=== PATIENT | male | born 1955 | race Caucasian/White ===

== ENCOUNTER 2018-03-25 00:31 | Inpatient (IN) | payer OTHER ==
[2018-03-25] VITALS (81 sets, daily range): BP systolic 110–166; BP diastolic 59–113
[~2018-03-25] VITALS: Ht 182.9 cm
[2018-03-25] MEDS ORDERED: MORPHINE SULFATE 4 MG/ML SYR/VIAL ONE (00:44)
[2018-03-25] MEDS ORDERED: MORPHINE SULFATE 10 MG/ML INJ 1ML SDV IV ONE (00:45)
[2018-03-25] MEDS ORDERED: HEPARIN SODIUM (PORCINE) 5000 UNITS/ML 1ML VIAL ONE (00:46)
[2018-03-25] MEDS ORDERED: ONDANSETRON HCL 4 MG/2 ML VIAL ONE (00:46)
[2018-03-25] MEDS ORDERED: ASPirin 81 mg TAB ONE (00:50)
[2018-03-25 00:58] LABS: Basophils # (auto) 0.1 uL; Basophils % (auto) 0.9 % (0.0-2.0); Eosinophils # (auto) 0.2 uL; Eosinophils % (auto) 2.7 % (0.0-7.0); Hematocrit 41.9 % (41.0-53.0); Hemoglobin 14.4 g/dL (13.5-17.5); Lymphocytes # (auto) 2.5 uL; Lymphocytes % (auto) 36.5 % (10.0-50.0); Mean Corpuscular Hemoglobin 32.5 pg (28.0-32.0); Mean Corpuscular Hgb Conc. 34.3 g/dL (32.0-36.0); Mean Corpuscular Volume 94.8 fL (80.0-100.0); Monocytes % (auto) 13.9 % (0.0-12.0); Neutrophils # (auto) 3.2 uL; Nucleated Red Blood Cells % 0.1 %; Platelet Count (auto) 186 10^3/uL (140-450); Red Blood Cells 4.42 10^6/uL (4.5-5.90); Red Cell Distribution Width 12.6 % (11.8-14.3); White Blood Cell 6.9 10^3/uL (4.4-10.8)
[2018-03-25] MEDS ORDERED: ASPirin 81 mg TAB PO ONE (01:00)
[2018-03-25] MEDS ORDERED: HEPARIN SODIUM (PORCINE) 5000 UNITS/ML 1ML VIAL IV ONE (01:00)
[2018-03-25] MEDS ORDERED: ONDANSETRON HCL 4 MG/2 ML VIAL IV ONE (01:00)
[2018-03-25] MEDS ORDERED: LIDOCAINE 2%HCL (LOCAL ANESTH.) INJ 20ML MDV ONE (01:05)
[2018-03-25] MEDS ORDERED: IODIXANOL 320MG/ML 100ML BTL IV ONE ×3 (01:05→01:47)
[2018-03-25 01:16] LABS: Albumin 3.2 g/dL (3.4-5.0); Anion Gap 12 (5-15); Blood Urea Nitrogen 22 mg/dL (7-18); Calcium 7.8 mg/dL (8.5-10.1); Carbon Dioxide 20 mmol/L (21-32); Chloride 109 mmol/L (98-107); GFR African American > 60 mL/min; GFR Non-African American > 60 mL/min; Glucose 127 mg/dL (74-106); Magnesium 2.1 mg/dL (1.6-2.6); Potassium 3.2 mmol/L (3.5-5.1); Sodium 141 mmol/L (136-145)
[2018-03-25] MEDS ORDERED: fentaNYL CITRATE 100 MCG/2 ML VL ONE ×2 (01:16→01:52)
[2018-03-25] MEDS ORDERED: ANGIOMAX 250 MG VIAL IV ONE ×2 (01:16→02:16)
[2018-03-25] MEDS ORDERED: ATROPINE SULF 1 MG/10ml SYR ONE (01:16)
[2018-03-25] MEDS ORDERED: MIDAZOLAM HCL 1MG/1ML-2 ML VIAL ONE (01:16)
[2018-03-25] MEDS ORDERED: EPINEPHrine HCL 1 MG/10 ML SYRG ONE (01:16)
[2018-03-25] MEDS ORDERED: SODIUM CHL 0.9% 50 ML ONE ×2 (01:16→02:16)
[2018-03-25 01:25] LABS: Alanine Aminotransferase 26 U/L (16-61); Alkaline Phosphatase 70 U/L (45-117); Aspartate Aminotransferase 17 U/L (15-37); Bilirubin, Total 0.3 mg/dL (0.2-1.0); Total Protein 6.3 g/dL (6.4-8.2)
[2018-03-25] MEDS ORDERED: LIDOCAINE HCL 100 MG/5ML (2%) SYRG INJ IV ONE (01:50)
[2018-03-25] MEDS ORDERED: FUROSEMIDE 20 MG/2 ML VIAL ONE (02:01)
[2018-03-25] MEDS ORDERED: TICAGRELOR 90 MG TAB ONE (02:22)
[2018-03-25] MEDS ORDERED: MORPHINE SULFATE 10 MG/ML INJ 1ML SDV IV PRN (03:00)
[2018-03-25] MEDS ORDERED: NITROGLYCERIN 0.4 MG SL TAB SL PRN (03:00)
--- NOTE | 2018-03-25 03:05 | NUR ---
ICU pt S/P Cardiac Cath Report received from Tejas LANDEROS. CONCETTA BUCHANAN brought to bed 266 following Left Cardiac catheterization, on cardiac rn and portable oxygen. Patient transfered to ICU bed, connected to ICU monitoring and oxygen. Catheter remains in right groin groin. Patient educated on need to keep leg straight and flat. Patient verbalized understanding. Site assessed for any bleeding, redness or swelling. Pedal pulses on affected leg assessed for positive tissue perfusion. Patient instructed on need to notify staff immediately if any pain, burning or wetness to site, and any lower back pain. Patient educated on new cardiac medications. All questions and concerns addressed, patient verbalized understanding of all education and instruction. See notes for any further. NOTE: Safeguard dressing in the right groin, intact with no signs of bleeding. MRSA swab in the nose done, specimen sent to lab.
[2018-03-25] MEDS ORDERED: POTASSIUM CHL 20 Meq TABLET PO ONE (03:30)
--- NOTE | 2018-03-25 04:25 | NUR ---
Received a call from Jesus Aguilar from [employer] asking an update on pt's status. Primary RN informed him that he needs to give me the password first or he can call the family to access the password and other information.
[2018-03-25] MEDS: ATORVASTATIN 20 MG TAB PO SCH ×2 (04:35→21:33)
--- NOTE | 2018-03-25 05:00 | NUR ---
2nd call received from Jesus Aguilar from [facility], case # [id number] verifying pt's status whether service delivery analyst from the family is fit to visit family member home. Left a callback # . Addendum: 03/26/18 at 0434 by Lina Hartman RN Updated on pt's status after verifying the password.
[2018-03-25] MEDS ORDERED: METO25TA5 PO (05:36)
[2018-03-25] MEDS ORDERED: IBUP600T27 PO (05:36)
[2018-03-25] MEDS ORDERED: ATOR10TA PO (05:36)
[2018-03-25] MEDS ORDERED: LOSA25TA40 PO (05:36)
--- NOTE | 2018-03-25 06:00 | NUR ---
C/o "funny chest pain something with a gas" scale, 03/13 but refused pain medication, he said " I already had a lot in the OR and I don't want it", Had runs of vtach in the strip and BBB, will do the EKG and will attach strip to chart. Addendum: 03/25/18 at 0747 by Lina Hartman RN Pt had no accompanying S/S. VS noted to be stable.
--- NOTE | 2018-03-25 06:30 | NUR ---
Deflated a total of about 40ml of air thru the safeguard in the right groin but incision is opening up slowly and tiny amount of blood was coming out, inflated back about 20ml of air and left the safeguard temporarily.
--- NOTE | 2018-03-25 07:20 | NUR ---
Closing shift note Resting on bed with no signs of distress. Report given to Virginia LANDEROS.
--- NOTE | 2018-03-25 07:30 | NUR ---
OPENING SHIFT NOTE ASSUMED CARE OF PATIENT AT THIS TIME. REPORT RECEIVED FROM INCISING MACHINE OPERATOR RN. POC REVIEWED. HEAD TO TOE ASSESSMENT COMPLETED AND DOCUMENTED (SEE INTERVENTION SPREADSHEET FOR DETAILS). AT THIS TIME, PATIENT IS ALERT AND ORIENTED TO PERSON, PLACE, TIME AND SITUATION. NO DISTRESS NOTED, RESPIRATIONS EVEN AND UNLABORED, ON ROOM AIR. IV SITE BENIGN, NO REDNESS, SWELLING OR PAIN NOTED OR REPORTED BY PATIENT. RIGHT GROIN AREA CLEAN, DRY AND INTACT 5 MLS OF AIR REMOVE FROM SAFEGUARD PER PROTOCOL - AREA SOFT TO TOUCH, PATIENT DENIES DISCOMFORT, PULSES PRESENT. DISCUSSED IMPORTANCE OF TURNING TO MAINTAIN SKIN INTEGRITY TO PATIENT AND SPOUSE - BOTH VERBALIZED UNDERSTANDING. CALL LIGHT, WATER AND ALL PERSONAL BELONGINGS WITHIN REACH. BVM AND SUCTION AT BEDSIDE. WILL MONITOR PATIENT CONTINUOUSLY.
[2018-03-25] MEDS ORDERED: CARVEDILOL 3.125 MG TAB PO SCH (08:00)
--- NOTE | 2018-03-25 08:08 | NUR ---
FIELD ADMINISTRATOR AT BEDSIDE
--- NOTE | 2018-03-25 08:32 | NUR ---
DR MEEHAN AT BEDSIDE REVIEWED ECHO AT BEDSIDE WITH FRIT COATER - ECHO NOT YET COMPLETED. DR MEEHAN UPDATED ON PATIENT'S STATUS, MORNING LABS AND PATIENT COMPLAINT OF CHEST PAIN AND EKG DURING REHABILITATION SUPERVISOR. ORDERS FOR BMP AND CBC RECEIVED, NO ORDERS REGARDING EKG RECEIVED. DR MEEHAN ALSO AWARE OF PENDING PARTIAL DEFLATION RIGHT GROIN SAFEGUARD, POSITIVE PULSES PRESENT. PATIENT'S SPOUSE AT BESIDE. PATIENT OK TO EAT BREAKFAST. Addendum: 03/25/18 at 0837 by Virginia Avelar RN DR MEEHAN ORDERED PATIENT TO REMAIN ICU STATUS - MONTSERRAT BUSTILLOS NURSE AWARE. Addendum: 03/25/18 at 1010 by Virginia Avelar RN 5 MLS OF AIR REMOVED FROM SAFEGUARD, NO BLEEDING NOTED - PATIENT DENIES PAIN OR DISCOMFORT.
--- NOTE | 2018-03-25 09:25 | NUR ---
CALL RECEIVED FROM [facility]N DETASSELER FROM [employer] PROVIDED WITH INFORMATION REQUESTED BY [employer]ORGAN. MORGAN STATED VISIT AUTHORIZED, WILL FOLLOW-UP AFTER 24 HOURS - .
--- NOTE | 2018-03-25 09:50 | NUR ---
DR MEEHAN AT BEDSIDE DISCUSSED OVERALL PLAN WITH PATIENT AND SPOUSE AT BEDSIDE. PATIENT SCHEDULED FOR ANOTHER HEART CATH TOMORROW PENDING [place] AUTHORIZATION. BOTH PATIENT AND SPOUSE VERBALIZED UNDERSTANDING AND AGREED WITH DR MEEHAN'S PLAN. REMOVED ANOTHER 5 MLS OF AIR FROM SAFEGUARD, NO BLEEDING NOTED - AREA SOFT TO TOUCH, PATIENT DENIES PAIN OR DISCOMFORT IN GROIN AREA. WILL CONTINUE TO MONITOR.
[2018-03-25 10:10] LABS: Basophils # (auto) 0 uL; Basophils % (auto) 0.5 % (0.0-2.0); Eosinophils # (auto) 0.1 uL; Eosinophils % (auto) 0.7 % (0.0-7.0); Hematocrit 43.7 % (41.0-53.0); Hemoglobin 15.3 g/dL (13.5-17.5); Lymphocytes # (auto) 1.2 uL; Lymphocytes % (auto) 12.9 % (10.0-50.0); Mean Corpuscular Hemoglobin 32.5 pg (28.0-32.0); Mean Corpuscular Hgb Conc. 34.9 g/dL (32.0-36.0); Mean Corpuscular Volume 93.2 fL (80.0-100.0); Monocytes # (auto) 1.1 uL; Neutrophils # (auto) 7.2 uL; Neutrophils % (auto) 74.9 % (37.0-80.0); Platelet Count (auto) 204 10^3/uL (140-450); Red Blood Cells 4.69 10^6/uL (4.5-5.90); Red Cell Distribution Width 12.9 % (11.8-14.3); White Blood Cell 9.6 10^3/uL (4.4-10.8)
[2018-03-25 10:48] LABS: Anion Gap 6 (5-15); BUN/Creatinine Ratio 19.3; Blood Urea Nitrogen 16 mg/dL (7-18); Calcium 8.7 mg/dL (8.5-10.1); Carbon Dioxide 24 mmol/L (21-32); Chloride 107 mmol/L (98-107); GFR African American > 60 mL/min; GFR Non-African American > 60 mL/min; Glucose 125 mg/dL (74-106); Potassium 4.3 mmol/L (3.5-5.1); Sodium 137 mmol/L (136-145)
[2018-03-25] MEDS: TICAGRELOR 90 MG TAB PO SCH ×2 (10:52→21:33)
[2018-03-25] MEDS: LISINOPRIL 5 MG TAB PO SCH (10:53)
[2018-03-25] MEDS: ASPirin 81 mg TAB PO SCH (10:54)
--- NOTE | 2018-03-25 12:30 | NUR ---
HOSPITALIST AT BEDSIDE DR PERES UPDATED ON PATIENT'S STATUS AND SPOKE WITH DR MEEHAN. ORDERS RECEIVED AND WILL BE CARRIED OUT. Addendum: 03/25/18 at 1455 by Virginia Avelar RN COMPLETE DEFLATION OF SAFEGUARD BALLOON - NO BLEEDING NOTED. WILL CONTINUE TO MONITOR.
--- NOTE | 2018-03-25 13:10 | NUR ---
PHONE CALL RECEIVED FROM DR SHEFALI MEEHAN ORDERED CTA OF CHEST STAT AND ONE LITER OF NORMAL SALINE. DR MEEHAN AWARE THAT PATIENT COMPLETED ONE LITER OF FLUIDS THAT WAS ORIGINALLY STARTED IN EQUITY DIRECTOR THIS MORNING. PATIENT HAS SINCE BEEN SALINE LOCKED SINCE COMPLETION. DR MEEHAN VERBALIZED DISAPPROVAL OF COMPLETION OF ONE LITER STATING "I WAS NOT AWARE HE WAS STILL GETTING FLUIDS", THEREFORE, ONE MORE LITER WILL NOT BE ADMINISTERED.
[2018-03-25] MEDS ORDERED: IOHEXOL 350 MG/ML 100ML IJ ONE (14:15)
--- NOTE | 2018-03-25 14:51 | NUR ---
PATIENT OFF FLOOR VIA [facility] FOR [facility] CHEST CT ANGIO. [facility] SPOKE WITH DR MEEHAN REGARDING CONTRAST - ORDERS TO PROCEED WITH CT RECEIVED. PATIENT ALERT AND ORIENTED X4, NO DISTRESS NOTED, RESPIRATIONS EVEN AND UNLABORED. WILL MONITOR PATIENT UPON RETURN TO FLOOR. Addendum: 03/25/18 at 1456 by Virginia Avelar RN RIGHT GROIN ASSESSED. AREAS OF TO TOUCH, NO BLEEDING OR DRAINAGE NOTED, PATIENT DENIES PAIN OR DISCOMFORT AT THIS TIME.
--- NOTE | 2018-03-25 15:08 | NUR ---
PATIENT RETURN TO ROOM VIA GURNEY, ALERT AND ORIENTED X4, NO DISTRESS NOTED, RESPIRATIONS EVEN AND UNLABORED. PATIENT DENIES PAIN OR DISCOMFORT. WILL CONTINUE TO MONITOR AND NOTIFY DR MEEHAN ONCE RESULTS BECOME AVAILABLE. FAMILY AWARE THAT PATIENT WAS TAKEN TO RADIOLOGY VIA TELEPHONE AFTER PASSWORD VERIFICATION.
--- NOTE | 2018-03-25 15:52 | NUR ---
CONTACT RADIOLOGY TO FOLLOWUP UP CTA AND ABD/PELVIC CT RESULTS ORDERED STAT. TECH STATED SHE WOULD CALL AND FOLLOW-UP ON RESULTS.
--- NOTE | 2018-03-25 16:36 | NUR ---
CONTACT DR SHEFALI MEEHAN NOTIFIED OF CT ABDOMEN/PELVIC RESULTS AND PENDING CTA RESULTS WELL CURRENT RUN OF SVT AND BLOOD PRESSURE. PATIENT ASYMPTOMATIC - DENIES ANY CHEST PAIN OR DISCOMFORT AND TALKING ON PHONE. ORDERS RECEIVED TO INCREASE COREG TO 6.25 MG PO BID, AMLODIPINE 5 MG PO X1 AND NORMAL SALINE TO START AT MIDNIGHT AT 100 MLS/HR UNTIL 0500 AM 03/26/18 FOR A TOTAL OF 500 MLS - DO NOT HOLD TOMORROW MORNING'S DOSE OF ASPIRIN AND BRILINTA.
[2018-03-25] MEDS ORDERED: amLODIPine BESYLATE 5 MG TAB PO ONE (16:45)
--- NOTE | 2018-03-25 19:00 | NUR ---
OPENING SHIFT NOTE ASSUMED CARE, AWAKE AND ORIENTED X4 WITH NO SIGNS OF DISTRESS, ON O2 @ 2L/MIN, SPO2 96%, RIGHT GROIN DRESSING, CLEAN, DRY AND INTACT, SOFT TO TOUCH WITH STRONG AND PALPABLE BIPEDAL PULSES, IV ACCESS PATENT AND INTACT. BED IN LOWEST POSITION WITH SIDE RAILS UP, BED ALARM ON AND CALL LIGHT WITHIN REACH. ENCOURAGED TO CALL IF HE NEEDS SOMETHING. WILL CONTINUE CARE.
[2018-03-25] MEDS: CARVEDILOL 3.125 MG TAB PO SCH (21:37)
--- NOTE | 2018-03-25 22:30 | NUR ---
Urine specimen collected and sent to lab.
[2018-03-25 23:14] LABS: Urine Bacteria NONE SEEN /hpf (None Seen); Urine Blood Negative /uL (Negative); Urine WBC 1 /hpf (0 - 3)
[2018-03-26] VITALS (60 sets, daily range): BP systolic 76–139; BP diastolic 22–83
[2018-03-26] MEDS ORDERED: SODIUM CHLORIDE 0.9% 500 ML IV ONE
--- NOTE | 2018-03-26 | NUR ---
Instructed on NPO post midnight
--- NOTE | 2018-03-26 04:20 | NUR ---
CHG wipes done all over the body, complete linens and gown changed.
--- NOTE | 2018-03-26 05:00 | NUR ---
Total of 500ml ns infused over 5 hrs.
[2018-03-26 05:22] LABS: INR 0.93 (0.9-1.15); Partial Thromboplastin Time 25.7 sec (23.78-33.04)
[2018-03-26 05:29] LABS: Cholesterol 138 mg/dL (< 200)
[2018-03-26 05:30] LABS: GFR African American > 60 mL/min; GFR Non-African American > 60 mL/min
[2018-03-26 05:32] LABS: HDL Cholesterol 51 mg/dL (40-59); LDL Cholesterol 80 mg/dL (< 100); Triglycerides 106 mg/dL (< 150)
--- NOTE | 2018-03-26 07:50 | NUR ---
ASSESS- PT. LYING IN BED WITH EYES CLOSED, AROUSABLE. ALERT AND ORIENTED TIMES FOUR. DENIES ANY PAIN OR DISCOMFORT. NO C/P. LUNGS CLEAR RENITA. INSPIRATORY AND EXPIRATORY. NO SOB. O2 2L N/C. RT. GROIN WITH ANGIOSEAL INTACT, NO HEMATOMA, NO BRUISING, NO BLEEDING. RADIAL PULSES STRONG, PALPABLE RENITA. PEDAL PULSES STRONG, PALPABLE REINTA. NO EDEMA. CAPILLARY REFILL < 3 SEC. ABD. SOFT, FLAT, NON-TENDER. BOWEL SOUNDS ALL FOUR QUADRANTS. NO N/V. PT. IS NPO FOR [facility] TODAY. VOIDING VIA URINAL WITHOUT DIFFICULTY.
--- NOTE | 2018-03-26 08:00 | NUR ---
Family updated on pt status Family of CHANELCONCETTA updated on patient's status and condition. All questions and concerns addressed. verbalized understanding. VISITING AT THE BS.
[2018-03-26] MEDS: TICAGRELOR 90 MG TAB PO SCH ×2 (08:39→22:02)
[2018-03-26] MEDS: ASPirin 81 mg TAB PO SCH (08:39)
[2018-03-26] MEDS ORDERED: IODIXANOL 320MG/ML 100ML BTL IV ONE (08:40)
[2018-03-26] MEDS ORDERED: LIDOCAINE 2%HCL (LOCAL ANESTH.) INJ 20ML MDV ONE (08:41)
--- NOTE | 2018-03-26 08:45 | NUR ---
PT. WENT TO SUPERVISOR WOUND VIA BED ON US ADMINISTRATIVE LAW JUDGE, O2 2L N/C, RN HERE FROM SUPERVISOR WOUND. GAVE REPORT TO RN. FAMILY AT THE . NPO SINCE MID. GAVE BRILINTA AND ASA ORDERED BY DR. MEEHAN BEFORE [facility]. VSS.
[2018-03-26] MEDS ORDERED: SODIUM CHL 0.9% 50 ML ONE (09:05)
[2018-03-26] MEDS ORDERED: ANGIOMAX 250 MG VIAL IV ONE (09:05)
[2018-03-26] MEDS ORDERED: fentaNYL CITRATE 100 MCG/2 ML VL ONE (09:05)
[2018-03-26] MEDS ORDERED: MIDAZOLAM HCL 1MG/1ML-2 ML VIAL ONE (09:05)
[2018-03-26] MEDS ORDERED: EPINEPHrine HCL 1 MG/10 ML SYRG ONE (09:19)
[2018-03-26] MEDS ORDERED: ATROPINE SULF 1 MG/10ml SYR ONE (09:19)
[2018-03-26] MEDS: CARVEDILOL 3.125 MG TAB PO SCH ×2 (10:00→22:04)
[2018-03-26] MEDS: LISINOPRIL 5 MG TAB PO SCH (10:00)
--- NOTE | 2018-03-26 10:00 | NUR ---
PT. RETURNED FROM [facility]. REPORT RECEIVED PREVIOUSLY. ON STEEL ERECTOR APPRENTICE AND O2 2L N/C. NO PAIN OR DISCOMFORT. LT. GROIN WITH ANGIOSEAL INTACT WITH SAFEGUARD WITH 40 CC OF AIR. NO HEMATOMA, NO BLEEDING, NO BRUISING LT. GROIN. PT. IS SUPINE AND INSTRUCTED HAS TO LAY FLAT FOR 2 HRS. AND NOT TO BEND LT. LEG.
[2018-03-26] MEDS: SODIUM CHLOR 0.9% PF (SALINE LOCK) 10ML VIAL/SYR IV SCH ×2 (10:06→22:02)
--- NOTE | 2018-03-26 11:00 | NUR ---
LT. GROIN WITH ANGIOSEAL WITH SAFEGUARD INTACT. NO HEMATOMA, NO BRUISING, FEW DROPS OF BLOOD UNDER SAFEGUARD. VSS. PT. REMAINS SUPINE AND IS KEEPING LT. LEG STRAIGHT.
--- NOTE | 2018-03-26 11:40 | NUR ---
DR. PERES Provider/Hospitalist at bedside. GAVE UPDATE ON PT. NEW ORDERS RECEIVED. SAID PT. CAN GO TO TELE LATER THIS AFTERNOON. SPOKE WITH PT'S. AND PT. AT BS.
--- NOTE | 2018-03-26 11:45 | NUR ---
GAVE PT'S. PT'S. STENT CARDS TIMES 2 AND ANGIOSEAL INFORMATION TO TAKE HM. INSTRUCTED PT. TO KEEP STENT CARDS IN HIS WALLET AND KEEP WITH HIM AT ALL TIMES.
--- NOTE | 2018-03-26 11:50 | NUR ---
LUISANA CALLED. GAVE UPDATE ON PT.
--- NOTE | 2018-03-26 13:30 | NUR ---
LT. GROIN WITH ANGIOSEAL AND SAFEGUARD INTACT, NO HEMATOMA, NO BRUISING, FEW DROPS OF BLOOD UNDER SAFEGUARD-NO CHANGE FROM BEFORE. PT. SITTING AT 30 DEGREE ANGLE NOW IN BED.
--- NOTE | 2018-03-26 15:00 | NUR ---
FAMILY VISITING AT THE .
--- NOTE | 2018-03-26 16:30 | NUR ---
LT. GROIN WITH ANGIOSEAL AND SAFEGUARD WITH 40 CC OF AIR. FEW DROPS OF BLOOD UNDER SAFEGUARD. NO HEMATOMA, NO BRUISING TO SITE.
--- NOTE | 2018-03-26 18:30 | NUR ---
NO SIGNS OF DISTRESS OR DISCOMFORT. FAMILY VISITING AT THE BS.
--- NOTE | 2018-03-26 19:49 | NUR ---
INITIAL CONTACT ASSUMED CARE OF PATIENT PATIENT RECEIVED LAYING ON BED ON 2L OXYGEN VIA NASAL CANNULA. AAOX4, VITAL SIGNS WITHIN NORMAL LIMITS, NO S/S OF DISTRESS NOTED AT THIS TIME. PATIENT DENIES PAIN AT THIS TIME. 20 G IV RIGHT WRIST, 18 G IV LEFT A/C BOTH IV'S ARE PATENT, INTACT AND ASYMPTOMATIC. FAMILY AT BEDSIDE. BED IN CLEAR VIEW OF NURSES STATION AND IN LOWEST LOCKED POSITION, SIDE RAILS UP X TWO, PLAN OF CARE DISCUSSED WITH PATIENT, PATIENT VERBALIZED UNDERSTANDING, SAFETY MAINTAINED, WILL CONTINUE TO MONITOR
--- NOTE | 2018-03-26 21:30 | NUR ---
PLAN OF CARE DISCUSSED WITH PATIENT AND SON ALL QUESTIONS ANSWERED
[2018-03-26] MEDS: ATORVASTATIN 20 MG TAB PO SCH (22:03)
--- NOTE | 2018-03-26 22:15 | NUR ---
FAMILY LEFT THE BEDSIDE FOR THE EVENING
[2018-03-27] VITALS (15 sets, daily range): BP systolic 90–141; BP diastolic 57–71
--- NOTE | 2018-03-27 02:35 | NUR ---
CARE ENDORSED TO TIGRE SANCHEZ ALL QUESTIONS ANSWERED
--- NOTE | 2018-03-27 03:15 | NUR ---
PATIENT TRANSFERRED TO TELE BED 297B NO S/S OF DISTRESS NOTED AT THIS TIME PATIENT MADE COMFORTABLE, CHART LEFT WITH PROMOTION SPECIALIST, PATIENT GIVEN EXTRA BLANKETS, BED IN LOWEST LOCKED POSITION, SIDE RAILS UP X 2, SAFETY MAINTAINED, RN LAURA AT BEDSIDE
--- NOTE | 2018-03-27 03:20 | NUR ---
PATIENT TRANSFERRED FROM [place], NO SIGNS OR SYMPTOMS OF DISTRESS, NO COMPLAINTS OF PAIN AT THIS TIME. BED LOCKED IN LOWEST POSITION WITH SIDE RAILS UP X2 FOR SAFETY. CALL LIGHT WITHIN REACH. WILL CONTINUE TO ROUND Q 1HR AND PRN.
--- NOTE | 2018-03-27 07:40 | NUR ---
OPENING SHIFT NOTE ASSUMED CARE OF PATIENT. PATIENT AWAKE AND ALERT SITTING UP IN BED. NO S/S OF DISTRESS OR SOB NOTED. SAFEGUARD NOTED TO LEFT GROIN, PER NOC RN TO BEGIN REMOVING AIR STARTING THIS MORNING. REMOVED 10ML AT THIS TIME, NO BLEEDING NOTED. CONTINUING TO MONITOR.
[2018-03-27] MEDS: SODIUM CHLOR 0.9% PF (SALINE LOCK) 10ML VIAL/SYR IV SCH (08:00)
[2018-03-27] MEDS: CARVEDILOL 3.125 MG TAB PO SCH (10:00)
[2018-03-27] MEDS: LISINOPRIL 5 MG TAB PO SCH (10:00)
[2018-03-27] MEDS: ASPirin 81 mg TAB PO SCH (10:20)
[2018-03-27] MEDS: TICAGRELOR 90 MG TAB PO SCH (12:23)
--- NOTE | 2018-03-27 12:27 | NUR ---
AT BEDSIDE DR PERES AT BEDSIDE AT THIS TIME. NEED TO OBTAIN CLEARANCE FOR DISCHARGE FROM DR MEEHAN. CONTINUING TO MONITOR.
--- NOTE | 2018-03-27 12:30 | NUR ---
PAGE OUT TO DR MEEHAN AT THIS TIME. AWAITING CALL BACK FOR CLEARANCE FOR DISCHARGE. CONTINUING TO MONITOR PATIENT.
--- NOTE | 2018-03-27 14:00 | NUR ---
SAFEGUARD REMOVED SAFEGUARD REMOVED AT THIS TIME, GAUZE AND TEGADERM PLACED. NO BLEEDING NOTED AT THIS TIME. WILL CONTINUE TO MONITOR.
--- NOTE | 2018-03-27 15:42 | NUR ---
CLEARED FOR DISCHARGE RECEIVED CALL FROM DR PERES, SPOKE TO DR MEEHAN AND PATIENT CLEARED FOR DISCHARGE AT THIS TIME. WILL CARRY OUT ORDERS AND CONTINUE TO MONITOR.
--- NOTE | 2018-03-27 17:50 | NUR ---
DISCHARGED PATIENT DISCHARGED HOME VIA AMBULATORY TO PRIVATE FAMILY VEHICLE AFTER ALL DISCHARGE INSTRUCTIONS GIVEN AND ALL QUESTIONS AND CONCERNS ADDRESSED. IVS REMOVED USING CLEAN STERILE TECHNIQUE, CATHETERS BOTH INTACT UPON REMOVAL, PRESSURE DRESSINGS APPLIED. TELE REMOVED, CLEANED AND RETURNED TO MARYAM. PATIENT SHOWED NO S/S OF DISTRESS OR SOB NOTED UPON DISCHARGE.
== END 2018-03-27 18:33 | disposition home or self-care (01) | DRG 246 ==
LOC: EDBD 00:31 → ER 00:40 → CATH 00:54 → DOU IN ICU 03:08 → TELE-WESTW 03-27 03:38
PROVIDERS: ADMIT Internal Medicine; ATTEND Internal Medicine
PROC: 4A023N7 Measurement of Cardiac Sampling and Pressure, Left Heart, Percutaneous Approach (ICD-10-PCS; principal; 2018-03-25)
PROC: 027034Z Dilation of Coronary Artery, One Artery with Drug-eluting Intraluminal Device, Percutaneous Approach (ICD-10-PCS; 2018-03-25)
PROC: B2111ZZ Fluoroscopy of Multiple Coronary Arteries using Low Osmolar Contrast (ICD-10-PCS; 2018-03-25)
PROC: B2151ZZ Fluoroscopy of Left Heart using Low Osmolar Contrast (ICD-10-PCS; 2018-03-25)
PROC: 027034Z Dilation of Coronary Artery, One Artery with Drug-eluting Intraluminal Device, Percutaneous Approach (ICD-10-PCS; 2018-03-26)
PROC: 4A023N7 Measurement of Cardiac Sampling and Pressure, Left Heart, Percutaneous Approach (ICD-10-PCS; 2018-03-26)
PROC: B241ZZ3 Ultrasonography of Multiple Coronary Arteries, Intravascular (ICD-10-PCS; 2018-03-26)
PROC: B41J1ZZ Fluoroscopy of Other Lower Arteries using Low Osmolar Contrast (ICD-10-PCS; 2018-03-26)
PROC: B2111ZZ Fluoroscopy of Multiple Coronary Arteries using Low Osmolar Contrast (ICD-10-PCS; 2018-03-26)
DX: I21.29 ST elevation (STEMI) myocardial infarction involving other sites (principal); I50.21 Acute systolic (congestive) heart failure; I11.0 Hypertensive heart disease with heart failure; E78.5 Hyperlipidemia, unspecified; I25.10 Atherosclerotic heart disease of native coronary artery without angina pectoris; I25.2 Old myocardial infarction; Z82.49 Family history of ischemic heart disease and other diseases of the circulatory system; Z86.79 Personal history of other diseases of the circulatory system; Z87.891 Personal history of nicotine dependence
CPT/HCPCS: 36415; 71045; 71260; 74177; 80048; 80053; 80061; 81001; 82565; 83735; 83880; 84484; 85025; 85610; 85730; 86850; 86900; 86901; 87081; 93005; 93306; 96361; 96374; A6257; C1887; G0378; J2250; J2405; Q9967